=== PATIENT | female | born 1960 | race Caucasian/White ===

== ENCOUNTER 2016-07-12 07:21 | Day surgery (SDC) | payer BC ==
[2016-07-12] MEDS ORDERED: LIDOCAINE 2% MDV (20MG/ML) 20ML VIAL IV ONE ×2 (12:00)
[2016-07-12] MEDS ORDERED: PROPOFOL 10 MG/ML VIAL IV ONE (12:00)
--- NOTE | 2016-07-16 10:10 | Operative Note ---
DATE OF SURGERY: 07/12/2016 REFERRING PROVIDER: Deysi Rasheed MD PREOPERATIVE DIAGNOSIS: Colorectal cancer screening, last exam 5 years ago. POSTOPERATIVE DIAGNOSIS: Transverse colon polyps x 2, status post cold snare polypectomy x 2. OPERATION: COLONOSCOPY with cold snare polypectomy x 2. Preparation Quality: Fair to good. Estimated Blood Loss: Minimal. Samples Obtained: Transverse colon polyps x 2. PROCEDURE: After informed consent was obtained, the patient was placed in the left lateral decubitus position in the endoscopy suite, sedated and monitored by the Department of Anesthesia. Digital rectal exam was unremarkable. A well-lubricated PCF-180 colonoscope was inserted into the rectum and advanced to the cecum. The preparation quality was fair to good. The cecum, ileocecal valve, appendiceal orifice, and ascending colon were unremarkable. In the distal transverse colon there were 2 polyps, 1 somewhat pedunculated, 1 sessile, each removed with a cold snare. Minimal blood loss was noted. The polyps were retrieved without difficulty. The remainder of the transverse colon, descending colon, sigmoid colon, and rectum were otherwise unremarkable. J-turn views of the anorectum were unrevealing. The endoscope was straightened, the rectal ampulla deflated and the endoscope was removed. RECOMMENDATIONS: I would suggest the patient resume her medications and diet. She will require repeat exam in 3 years based on the preparation quality and the polyps that were seen. As always, thank you for allowing me to participate in the health care of your patients. Flavio Siegel DO CC: Deysi Rasheed MD [facility]
== END 2016-07-12 09:46 | disposition home or self-care (01) ==
LOC: HOP 07:21
PROVIDERS: ATTEND Internal Medicine Gastroenterology
DX: Z12.11 Encounter for screening for malignant neoplasm of colon (principal); D12.3 Benign neoplasm of transverse colon

== ENCOUNTER 2016-12-23 18:04 | Inpatient (IN) | payer MEDICARE ==
[2016-12-23] MEDS ORDERED: AZITHROMYCIN 500 MG in 0.9 % SODIUM CHLORIDE 250ML 250 ML IVPB ONE (18:33)
--- NOTE | 2016-12-23 18:40 | Emergency Department Record ---
History of Present Illness - General Chief Complaint: Shortness of breath Stated Complaint: YIN Time Seen by Provider: 12/23/16 18:07 Source: Patient Mode of Arrival: Ambulatory Limitations: No limitations - History of Present Illness Initial Comments: 56 yo female presents to ED with a CC of fever and worsening cough symptoms for the past 5-6 days. Patient reports worsening symptoms for the past several days after being seen in [facility] 4 days ago. 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 Patient reports fevers, chills, and decreased appetite as well. MD Complaint: Shortness of breath Onset/Timin -: Days(s) Severity: Moderate Consistency: Intermittent Improves With: Nothing Worsens With: Nothing Associated Symptoms: Cough, Fever Treatments Prior to Arrival: None - Related Data Home Oxygen Therapy: No Home Medications Medication Instructions Recorded Confirmed Last Taken Estrogens, Conjugated [Premarin] 1 unit TOP ASDIR 06/11/16 12/23/16 Unknown Levothyroxine Sodium 75 mcg PO DAILY 30 Days 12/20/16 12/23/16 Unknown Allergies Allergy/AdvReac Type Severity Reaction Status Date / Time No Known Drug Allergies Allergy Unverified 12/20/16 10:34 Travel Screening - Travel/Exposure Within Last 30 Days Have you traveled within the last 30 days?: No Review of Systems Constitutional: Reports: Chills, Fever, Malaise. Denies: Night sweats Eyes: Denies: Eye discharge, Eye pain ENT: Denies: Congestion, Ear pain, Epistaxis Respiratory: Reports: Cough, Dyspnea Cardiovascular: Reports: Dyspnea on exertion. Denies: Chest pain, Edema Endocrine: Denies: Fatigue, Heat or cold intolerance Gastrointestinal: Denies: Abdominal pain, Nausea, Vomiting Genitourinary: Denies: Incontinence, Retention Musculoskeletal: Denies: Arthralgia, Back pain, Gout Skin: Denies: Bruising, Change in color, Change in hair/nails Neurological: Denies: Abnormal gait, Confusion, Headache Psychiatric: Denies: Anxiety Hematological/Lymphatic: Denies: Anemia, Blood Clots Past Medical History - SOCIAL HISTORY Smoking Status: Never smoker Alcohol Use: None Drug Use: None - RESPIRATORY Hx Respiratory Disorders: No - CARDIOVASCULAR Hx Cardio Disorders: No - NEURO Hx Neuro Disorders: No - GI Hx GI Disorders: No - Hx Genitourinary Disorders: No - ENDOCRINE Hx Endocrine Disorders: No - MUSCULOSKELETAL Hx Musculoskeletal Disorders: No - PSYCH Hx Psych Problems: No - HEMATOLOGY/ONCOLOGY Hx Hematology/Oncology Disorders: Yes Hx Cancer: Yes (tongue and mouth) Hx Chemotherapy: Yes Hx Radiation Therapy: Yes Family Medical History Any Significant Family History?: No Physical Exam - General General Appearance: Alert, Oriented x3, Cooperative, Moderate distress, Other ( cachetic appearing on examination) Limitations: No limitations - Head Head exam: Atraumatic, Normocephalic, Normal inspection Head exam detail: negative: Abrasion, Contusion, Oakley's sign, General tenderness, Hematoma, Laceration - Eye Eye exam: Normal appearance. negative: Conjunctival injection, Periorbital swelling, Periorbital tenderness, Scleral icterus - ENT Ear exam: negative: Auricular hematoma, Auricular trauma Nasal Exam: negative: Active bleeding, Discharge, Dried blood Mouth exam: negative: Drooling, Laceration, Muffled voice, Tongue elevation - Neck Neck exam: Normal inspection. negative: Meningismus, Tenderness - Respiratory Respiratory exam: Decreased breath sounds, Other (crackles right base). negative: Rhonchi, Stridor, Wheezes - Cardiovascular Cardiovascular Exam: Normal rhythm, Normal heart sounds, Tachycardia - GI/Abdominal GI/Abdominal exam: Soft. negative: Distended, Rebound, Rigid, Tenderness - Rectal Rectal exam: Deferred - exam: Deferred - Extremities Extremities exam: negative: Calf tenderness, Pedal edema, Tenderness - Back Back exam: Denies: CVA tenderness (R), CVA tenderness (L) - Neurological Neurological exam: Alert, Normal gait, Oriented X3 - Psychiatric Psychiatric exam: Normal affect, Normal mood - Skin Skin exam: Normal color. negative: Abrasion Type of lesion: negative: abrasion Course Vital Signs 12/23/16 18:16 Temperature 100.5 F H Pulse Rate 111 H Respiratory 20 Rate Blood Pressure 120/75 Pulse Ox 91 L - Reevaluation(s) Reevaluation #1: 12/23/16 19:08 EKG: Sinus tachycardia [address] inversions III, AVF, ST depression V5/V6 Normal axis, normal intervals ST/T wave changes from 04/19/15 Reevaluation #2: 12/23/16 19:24 Labs reviewed, WBC 7.2 with 83% neutrophils. BUN 33/Creatinine 1.0. Lactic acid is 1.8. Troponin is pending. CXR: Bilateral infiltrates c/w pneumonia. Reevaluation #3: 12/23/16 19:36 Troponin has resulted as normal, will admit for further evaluation given the patient's vital signs and clinical appearance. Patient and SO agree with plan as discussed. Reevaluation #4: 12/23/16 19:43 Repeat Vitals: 109/69, pulse 112, RR 24, 94% 2 Liters, Temperature 100.2 Case was discussed with Dr. Gutiérrez, will accept admission at this time. Medical Decision Making - Lab Data Result diagrams: 12/23/16 18:40 12/23/16 18:40 Disposition Disposition: Admit Clinical Impression: CAP (community acquired pneumonia) Disposition: Still a Patient at [facility] Decision to Admit: Admit from ER Decision to Admit Date: 12/23/16 Decision to Admit Time: 19:37 Condition: (2) Stable Time of Disposition: 19:37 Quality - Quality Measures Quality Measures: N/A - Blood Pressure Screening Blood Pressure Classification: Pre-Hypertensive BP Reading Systolic Measurement: 120 Diastolic Measurement: 75 Screening for High Blood Pressure: < Pre-Hypertensive BP, F/U Documented > [ [id number]] (no further action required) Pre-Hypertensive Follow-up Interventions: Referral to alternative/primary care provider.
[2016-12-23] MEDS ORDERED: CEFTRIAXONE SODIUM 1 GM in 0.9 % SODIUM CHLORIDE 100ML 100 ML IVPB SCH ×2 (18:45→21:31)
[2016-12-23] MEDS ORDERED: 0.9 % SODIUM CHLORIDE 1000ML 1,000 ML IV SCH (18:45)
[2016-12-23 18:59] LABS: BASO % 0.3 % (0-6); HEMATOCRIT 41.4 % (35.0-47.0); HEMOGLOBIN 14.3 gm/dl (11.6-16.0); MEAN CELL VOLUME 88.7 fl (81-97); MEAN CORPUSCULAR HEMOGLOBIN 30.6 pg (27-33); MEAN CORPUSCULAR HGB CONC 34.5 g/dl (32-36); MONO % 8.9 % (0-9); PLATELET COUNT 140 K/uL (130-400); RED BLOOD COUNT 4.67 M/uL (3.80-5.40); RED CELL DISTRIBUTION WIDTH 14.1 % (11.5-14.5); WHITE BLOOD COUNT W/O DIFF 7.2 K/uL (4.2-12.2)
[2016-12-23 19:10] LABS: LACTIC ACID 1.8 mmol/L (0.7-2.1)
[2016-12-23 19:15] LABS: BLOOD UREA NITROGEN 33 mg/dL (7-17); EST GLOMERULAR FILTRATION RATE > 60 ml/min; GLUCOSE,RANDOM 147 mg/dL (70-110)
[2016-12-23 19:16] LABS: ALBUMIN 3.8 gm/dL (3.5-5.0); ALKALINE PHOSPHATASE 84 U/L (38-126); ALT/SGPT 42 U/L (9-52); AST/SGOT 44 U/L (14-36); TOTAL PROTEIN 7.6 gm/dL (6.3-8.2)
[2016-12-23] MEDS ORDERED: IBUPROFEN 100 MG/5 ML SUSP PO ONE (20:36)
[2016-12-23] MEDS ORDERED: PHENYLEPHRINE PO PRN (21:31)
[2016-12-23] MEDS ORDERED: ESTROGENS CONJ VG SCH (21:31)
[2016-12-23] MEDS ORDERED: ACETAMINOPHEN 500 MG TABLET PO PRN (21:31)
[2016-12-23] MEDS ORDERED: PROMETHAZINE PO PRN (21:31)
[2016-12-23] MEDS ORDERED: [UNRECOGNIZED DRUG - OTHER] PO PRN (21:31)
[2016-12-23] MEDS ORDERED: 0.9 % SODIUM CHLORIDE 1000ML 1,000 ML IV PRN (21:31)
[2016-12-23] MEDS ORDERED: CODEINE PO PRN (21:31)
[2016-12-23] MEDS: IPRATROPIUM/ALBUTEROL (0.5MG/3MG) NEB INH SCH (22:11)
[2016-12-23] MEDS: AZITHROMYCIN 500 MG in 0.9 % SODIUM CHLORIDE 250ML 250 ML IVPB SCH (22:43)
[2016-12-24] MEDS: IPRATROPIUM/ALBUTEROL (0.5MG/3MG) NEB INH SCH ×6 (02:20→21:50)
[2016-12-24] MEDS: CEFTRIAXONE SODIUM 1 GM in 0.9 % SODIUM CHLORIDE 100ML 100 ML IVPB SCH ×2 (06:36→18:05)
--- NOTE | 2016-12-24 07:37 | RADIOLOGY REPORT ---
EXAM: CHEST, TWO VIEWS HISTORY: COUGH AND FEVER. TECHNIQUE: PA and lateral upright views of the chest were obtained. Comparison: 12/20/16. FINDINGS: The heart, mediastinum, and pulmonary vasculature are normal. The lungs are hyperinflated. There are no infiltrates within the lower lobes bilaterally, right greater than left. The appearance is consistent with bilateral pneumonia. The upper lung gee are clear. There is no pneumothorax. There is minor blunting of the posterior costophrenic angles consistent with tiny effusions. The bones appear intact. Mild dextroconvex scoliosis is present within the thoracolumbar spine. IMPRESSION: 1. INTERVAL DEVELOPMENT OF BILATERAL LOWER LOBE INFILTRATES CONSISTENT WITH PNEUMONIA. 2. SMALL BILATERAL PLEURAL EFFUSIONS. 3. HYPERINFLATION. JOB NUMBER: [id number] [facility]
[2016-12-24] MEDS: LEVOTHYROXINE SODIUM 75 MCG TABLET PO SCH (09:31)
[2016-12-24] MEDS ORDERED: ACETAMINOPHEN 160 MG/5 ML UD 10.15ML CUP PO PRN (10:06)
[2016-12-24] MEDS ORDERED: 0.9 % SODIUM CHLORIDE 1000ML 1,000 ML IV ONE ×2 (10:47→10:48)
--- NOTE | 2016-12-24 16:14 | History and Physical Report ---
DATE OF ADMISSION: 12/23/2016 CHIEF COMPLAINT: Cough, congestion, dyspnea. HISTORY OF PRESENT ILLNESS: This is a 56-year-old female who presented to the ER with the chief complaint of fever, cough for the last four days, started on 12/18, which would be six days ago. She was seen at [facility], [place], diagnosed with a viral bronchitis, placed on Phenergan with codeine cough syrup, however, she is getting worse. She returned to the ER, seen by Dr. Chand and admitted to the hospital with bilateral pneumonia. She was given Rocephin and Azithromycin, IV fluids at 125 mL an hour, started on Azithromycin once a day and Rocephin 1 gram q.12hours and continue her home medications. Also started her on DuoNeb q.4hours p.r.n. 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 At [facility], they removed part of the jaw, made a reconstruction from a femur bone, and I think more of the tongue. She is having more difficulties with talking since that time and she is only able to eat liquids. This was in 2014. She did have a feeding tube in, however, that was DC'd between six and 12 months ago and since that has happened, she has lost about 10 pounds, according to the patient. She is thinking about trying to taking her oncologist to have her feeding tube placed back in. Her oncologist's name is Dr. Sanket Zimmerman at [phone]. Her last oncology appointment was 06/2016. Her next appointment is in 01/2017. She is currently not on chemo or radiation therapy. PAST SURGICAL HISTORY: Hysterectomy, tongue surgery, jaw surgery in 2014, J-tube placement and removal about six months ago to a year ago. Lymph node resection. SOCIAL HISTORY: She had never smoked cigarettes or never chewed tobacco. No alcohol use. 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 FAMILY PSYCHOSOCIAL HISTORY: Unremarkable. REVIEW OF SYSTEMS: HEENT: She does have congestion and cold, and fever and chills which started on 12/18 six days ago. CARDIOVASCULAR: No chest pain, palpitations, or arrhythmia. RESPIRATORY: Cough with congestion bilaterally. GASTROINTESTINAL: No nausea, vomiting, or diarrhea, black stools, or bloody stools. She is always on a liquid diet. GENITOURINARY: No dysuria or hematuria, frequency, or burning on urination. MUSCULOSKELETAL: No joint or bone abnormalities. NEUROLOGIC: No CVA, paralysis, or paresthesias. ENDOCRINE: No diabetes or thyroid disease. INTEGUMENT: No rash, ulcer, yellow skin, or moles. PHYSICAL EXAMINATION: GENERAL: Height is 5 feet 4 inches, weight is 91 pounds. VITAL SIGNS: Pulse is 69, respirations are 16, blood pressure is 90/60, pulse OX is 91% on room air. HEENT: She is only able to open her mouth about 3 cm because of her surgery on her throat and jaw area. Pupils are equal, round, and reactive to light and accomodation. Extraocular muscles intact. Throat has surgery on the tongue, which is basically almost gone. There is deformity of the left side of her face. NECK: Carotid pulses are equal bilaterally. No obvious signs of infection in her throat. Thyroid is smooth. CARDIOVASCULAR: Regular rate and rhythm without murmurs, clicks, rubs, or gallops. RESPIRATORY: Raucous-type lung sounds bilaterally and some with scant wheezing. ABDOMEN: Soft and nontender, no hepatosplenomegaly, no masses, no tenderness. Bowel sounds are active. No bruits. EXTREMITIES: No pitting edema, no cyanosis, no clubbing. Full range of motion, peripheral pulses are good. BREASTS: Deferred. GYNECOLOGIC: Deferred. RECTAL: Deferred. NEUROLOGIC: Cranial nerves 2 through 12 intact. No gross defects. Sensation normal, strength normal, deep tendon reflexes equal bilaterally. Babinski's is negative. MENTAL STATUS: Alert and oriented x 3. IMPRESSION: 1. Bilateral pneumonia. 2. Hyper inflation of the lungs. 3. History of tongue cancer in 1990. 4. History of jaw cancer in 2014. 5. Malnutrition, losing weight about 10 pounds over the last six months to a year. PLAN: 1. IV Rocephin 1 gram q.12h. 2. Azithromycin once a day, 500 mg. 3. DuoNeb treatments q.4h. p.r.n. 4. We will have a GI consult to discuss the possibilities of a feeding tube at this time. INPATIENT CERTIFICATION: Admit to Inpatient Care. Based on my medical assessment and after consideration of patient risk factors, age, comorbidities, and patient presenting symptoms and acuity, I expect this patient will remain in the hospital greater than or equal to 2 midnights, and the services needed warrant inpatient care because of bilateral pneumonia, oxygen requirements, and nutritional supplementation. ESTIMATED LENGTH OF STAY: 3 days. The patient may reasonably be expected to be discharged or transferred to a hospital within 96 hours after admission to [facility]. SERVICES NEEDED: IV antibiotics, oxygen therapy, oxygen monitoring, and DuoNeb treatment. I certify that my determination is in accordance with my understanding of Medicare requirements for reasonable and necessary inpatient services. [facility]
--- NOTE | 2016-12-24 16:20 | Medical Records Consult ---
DATE OF CONSULTATION: 12/24/2016 Dictated by: Daniela Silva, GI Fellow dictating for Dr. Ochoa REASON FOR CONSULTATION: Evaluation for feeding tube. HISTORY OF PRESENT ILLNESS: A 56-year-old female with past medical history significant for ENT malignancy, status post partial tongue resection and jaw reconstruction and history of hypothyroidism. Was admitted to [facility] for upper respiratory infection. GI was consulted for evaluation for PEG tube placement. HISTORY: Patient reports that in 1990, she had her first initial ENT surgery in which she had multiple lymph nodes removed. Her second surgery was in 2014 in which she had an extensive jaw reconstruction including bone grafting as well as partial tongue resection. At that time, she was evaluated by Speech Therapy and recommended to have a feeding tube placed. She likely had endoscopic PEG tube placement, but she is not 100% sure. All of her care was done through the [facility]. About a year ago, patient reports that she had a lot of issues with the PEG tube falling out, and after the third time, it was decided to leave the PEG tube out and see how patient was able to maintain her own nutrition. Patient was able to maintain her nutrition on a pureed diet and weight was stable at 105 pounds; however, patient reports that she has had a number of recurrent upper respiratory infections, and with each subsequent infection, patient lost a small amount of weight. She is currently down to 95 pounds and unable to gain her weight back. She last had dysphagia evaluation at her ENT's office through the [facility], and she reports that her dysphagia evaluation was unchanged from the previous. It was discussed and left up to her on whether or not she wanted to have a feeding tube placed again, and patient opted not to have one at that time. However, now that patient has not been able to gain her weight back, she is interested in having a PEG tube placed, for which GI has been consulted. PAST MEDICAL HISTORY: Hypothyroidism. Tongue cancer. SURGICAL HISTORY: Patient has had appendectomy, hysterectomy, jaw reconstruction, tongue resection, lymph node resection, tubal ligation. FAMILY HISTORY: Patient reports father from coronary artery disease. He also had a CABG. Mother is alive and healthy. She denies any family history of any malignancy. SOCIAL HISTORY: She is a nonsmoker. Does not drink alcohol. Does not use any illicit or IV drugs. MEDICATIONS: Refer to patient's admitting H&P for medications. Patient reports that only medication she does take, however, is levothyroxine. ALLERGIES: No known drug allergies. REVIEW OF SYSTEMS: Ten-point review of systems was performed and pertinent positives and negatives as listed above in the HPI. In addition, patient reports that she has trouble initiating her swallowing, but when she is able to get things down, she does not have any issues with food sticking in her throat. She denies any abdominal pain, nausea or vomiting. She does get recurrent infections, namely upper respiratory infections, and she has a lot of cough. She does report that she coughs and chokes sometimes when she eats. PHYSICAL EXAMINATION GENERAL: Not in acute distress. Alert and oriented x 3. HEENT: No scleral icterus. She does have surgical scars consistent with her jaw reconstruction. HEART: Regular rate and rhythm. No murmurs auscultated. LUNGS: Clear to auscultation bilaterally. No wheeze, rales or rhonchi noted. ABDOMEN: Abdomen is soft. Not distended. There are bowel sounds present. There is a PEG tube scar in the left upper quadrant. She is nontender to palpation. EXTREMITIES: No pedal edema present. She does have a scar on the left lateral side of her lower extremity from which she reports that her bone was grafted. SKIN: No jaundice. No pallor. LABS AND RADIOLOGY: Please refer to patient's hospital chart for these values and results. ASSESSMENT: 1. Dysphagia secondary to ENT malignancy, status post jaw reconstruction. 2. Hypothyroidism. RECOMMENDATIONS: Patient reports that she did have breakfast this morning, and so we are unable to perform any procedures today. Patient also indicates that she will be discharged tomorrow so outpatient PEG tube placement will be arranged through our office. This was discussed with the patient, and she is agreeable to that plan. Above was discussed with Dr. Ochoa. Thank you for the consultation. CC: Tito Gutiérrez DO GI Office [facility]
[2016-12-24] MEDS: AZITHROMYCIN 500 MG in 0.9 % SODIUM CHLORIDE 250ML 250 ML IVPB SCH (20:45)
[2016-12-25] MEDS: IPRATROPIUM/ALBUTEROL (0.5MG/3MG) NEB INH SCH ×7 (02:30→21:19)
[2016-12-25] MEDS: CEFTRIAXONE SODIUM 1 GM in 0.9 % SODIUM CHLORIDE 100ML 100 ML IVPB SCH ×2 (06:07→17:31)
[2016-12-25] MEDS: LEVOTHYROXINE SODIUM 75 MCG TABLET PO SCH (06:07)
[2016-12-25] MEDS ORDERED: ENOXAPARIN 30 MG/0.3 ML SYR SQ SCH (13:00)
[2016-12-25] MEDS ORDERED: METHYLPREDNISOLONE PF 125MG/VIAL IVP ONE (13:30)
[2016-12-26] MEDS: IPRATROPIUM/ALBUTEROL (0.5MG/3MG) NEB INH SCH ×4 (00:52→09:28)
[2016-12-26] MEDS: LEVOTHYROXINE SODIUM 75 MCG TABLET PO SCH (06:17)
[2016-12-26] MEDS: CEFTRIAXONE SODIUM 1 GM in 0.9 % SODIUM CHLORIDE 100ML 100 ML IVPB SCH (06:17)
[2016-12-26] MEDS ORDERED: PNEUM 23-VAL ADULT IM ONE (07:52)
--- NOTE | 2016-12-26 08:01 | Discharge Note ---
VTE H&P Assessment - Risk for VTE Risk for VTE: Yes Risk Level: Moderate Risk Assessment Date: 12/25/16 Risk Assessment Time: 13:00 VTE Orders Placed or Will Be Placed: Yes Discharge Medications - Discharge Medications Prescriptions: Albuterol Sulfate [Ventolin Hfa] 1 - 2 puff IH .EVERY 4-6 HRS PRN #1 inhaler PRN Reason: Wheezing Azithromycin [Zithromax] 500 mg PO DAILY #7 tab Cephalexin [Keflex] 500 mg PO QID #30 cap Home Medications: Ambulatory Orders Estrogens, Conjugated [Premarin] 1 unit TOP ASDIR 06/11/16 [Last Taken Unknown] Levothyroxine Sodium 75 mcg PO DAILY 30 Days 12/20/16 [Last Taken Unknown] Acetaminophen [Tylenol Liq] 975 mg PO Q6H PRN 12/26/16 [Last Taken Unknown] Albuterol Sulfate [Ventolin Hfa] 1 - 2 puff IH .EVERY 4-6 HRS PRN #1 inhaler 06/02 [Last Taken Unknown] Azithromycin [Zithromax] 500 mg PO DAILY #7 tab 12/26/16 [Last Taken Unknown] Cephalexin [Keflex] 500 mg PO QID #30 cap 12/26/16 [Last Taken Unknown] Discharge Note - Date Date of Discharge Note: 12/26/16 Disposition: Home, Self-Care Condition: (2) Stable Additional Instructions: follow up with Dr. Rasheed in the next week and after the pneumonia is cleared up follow up with Dr. Ochoa for a feeding tube. See GI consult. Forms: Patient Portal Access
[2016-12-26] MEDS ORDERED: PNEUM 13-VAL/PF 0.5 ML IM ONE (09:20)
[2016-12-26] MEDS ORDERED: AZITHROMYCIN 500 MG TABLET PO SCH (10:00)
--- NOTE | 2016-12-26 14:25 | Discharge Summary ---
DATE OF ADMISSION: 12/23/2016 DATE OF DISCHARGE: 12/26/2016 DISCHARGE DIAGNOSES: 1. Bilateral pneumonia. 2. History of jaw cancer and tongue cancer with a reconstruction. The tongue cancer was in 1990. The jaw cancer was in 2014. 3. Losing weight because of surgeries and not able to swallow and eat well. She did have a PEG tube in, but that came out, and it was left out for the last 6 months to a year. She would like to have that put back in again. GI consult was obtained and they will do that as an outpatient after the pneumonia has cleared up. 4. Status post hypothyroidism. ATTENDING PHYSICIAN: Tito Gutiérrez DO. REASON FOR HOSPITALIZATION: Cough, congestion, and dyspnea. This 56-year-old female presented to the Emergency Department with chief complaint of fever and cough for the last 4 days, which started on 12/18/2016. She was see at the [facility] and diagnosed with viral bronchitis and given Phenergan with codeine cough syrup. She got worse. She came into the ER and saw Dr. Neely and admitted to the hospital for bilateral pneumonia. She was given Rocephin and azithromycin and IV fluids. Also started on DuoNeb treatments every 4 hours. SIGNIFICANT FINDINGS: Chest x-ray revealed interval bilateral lower lobe pneumonia, bilateral infiltrates, small bilateral pleural effusions. Hyperinflation of the lungs. This was compared to an x-ray of 12/20/2016. This x-ray was done on 12/23/2016. LABORATORY: WBC 7200. Hemoglobin 14.3. Blood culture showing no growth up to this point. Potassium 4.6. BUN 33. Creatinine 1. Lactic acid 1.8. Troponin I was negative. THERAPY PROVIDED AND RESPONSE TO THERAPY: Patient was given DuoNeb treatments, oxygen therapy, and IV Rocephin and azithromycin IV. Gradually improved. She was given 1 dose of Solu-Medrol, which seemed to help her lung sounds yesterday, the day before discharge. Consultation with Dr. Ochoa for a PEG tube insertion. He would like to wait until the patient is clear of the pneumonia before putting the PEG tube in. On his consultation, she has dysphagia secondary to ENT malignancy, status post jaw reconstruction, 2) hypothyroidism, and Dr. Ochoa's office will contact the patient after she clear from pneumonia. PEG tube will be set up as an outpatient. Dr. Rasheed can facilitate that. Patient was improving and walking the hallway on the date before discharge and not short of breath. CONDITION ON DISCHARGE: Much improved. DISCHARGE INSTRUCTIONS: Follow up with Dr. Rasheed in 7 days. Ventolin inhaler 2 puffs every 4 hours. Azithromycin 500 mg daily. Keflex 500 mg q.i.d. for 7 days. Will continue with her home medications of levothyroxine and Premarin topically 3 times a week and p.r.n. CC: Deysi Rasheed MD [facility] SYSTEM[facility]berly
== END 2016-12-26 11:30 | disposition home or self-care (01) | DRG 178 ==
LOC: ER 18:04 → MEDSURG 20:28
PROVIDERS: ADMIT Emergency Medicine; ATTEND Emergency Medicine
DX: J69.0 Pneumonitis due to inhalation of food and vomit (principal); E46 Unspecified protein-calorie malnutrition; Z85.810 Personal history of malignant neoplasm of tongue; Z85.830 Personal history of malignant neoplasm of bone; R13.12 Dysphagia, oropharyngeal phase; E03.9 Hypothyroidism, unspecified
CPT/HCPCS: 71020; 80053; 83605; 84484; 85027; 90670; 93005; 93010; 93041; 94640; 94760; 94761; 96365; 99223; 99285; J0456; J1650; J2930; J7030; J7050

== ENCOUNTER 2017-01-24 21:08 | Emergency (ER) | payer MEDICARE ==
--- NOTE | 2017-01-24 21:28 | Emergency Department Record ---
History of Present Illness - General Chief complaint: Pain Stated complaint: PAIN WHERE FEEDING TUBE LOCATED Time Seen by Provider: 01/24/17 21:27 Source: Patient, Family - History of Present Illness Initial comments: The patient has a feeding tube which was placed 2 weeks ago at [facility]. 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 She has been underweight and had feeding tubes placed in the past. This tube is working and handles her feeding well without any concern for the tube being blocked. Her concern is that it is painful at the site of the tube entering her abdomen. She denies abdominal pain otherwise, no fevers, chills, cough, cp, madhavi, urinary symptoms, leg pain or calf tenderness. She was treated for pneumonia last month but this has resolved. - Related Data Home Medications Medication Instructions Recorded Confirmed Last Taken Estrogens, Conjugated [Premarin] 1 unit TOP ASDIR 06/11/16 12/23/16 Unknown Levothyroxine Sodium 75 mcg PO DAILY 30 Days 12/20/16 12/23/16 Unknown Previous Rx's Medication Instructions Recorded Acetaminophen [Tylenol Liq] 975 mg PO Q6H PRN 12/26/16 Albuterol Sulfate [Ventolin Hfa] 1 - 2 puff IH .EVERY 4-6 HRS PRN 12/26/16 #1 inhaler Azithromycin [Zithromax] 500 mg PO DAILY #7 tab 12/26/16 Cephalexin [Keflex] 500 mg PO QID #30 cap 12/26/16 Acetaminophen with Codeine 5 ml PO Q4H PRN #60 ml 01/24/17 [Tylenol #3] Allergies Allergy/AdvReac Type Severity Reaction Status Date / Time No Known Drug Allergies Allergy Unverified 12/20/16 10:34 Review of Systems Reviewed: No additional complaints except as noted below Constitutional: Reports: As per HPI. Denies: Chills, Fever, Malaise, Night sweats, Weakness, Weight change Eyes: Reports: As per HPI. Denies: Eye discharge, Eye pain, Photophobia, Vision change ENT: Reports: As per HPI. Denies: Congestion, Dental pain, Ear pain, Epistaxis , Hearing loss, Throat pain Respiratory: Reports: As per HPI. Denies: Cough, Dyspnea, Hemoptysis, Stridor, Wheezes Cardiovascular: Reports: As per HPI. Denies: Arrhythmia, Chest pain, Dyspnea on exertion, Edema, Murmurs, Orthopnea, Palpitations, Paroxysmal nocturnal dyspnea, Rheumatic Fever, Syncope Endocrine: Reports: As per HPI. Denies: Fatigue, Heat or cold intolerance, Polydipsia, Polyuria Gastrointestinal: Reports: As per HPI. Denies: Abdominal pain, Constipation, Diarrhea, Hematemesis, Hematochezia, Melena, Nausea, Vomiting Genitourinary: Reports: As per HPI. Denies: Abnormal menses, Discharge, Dyspareunia, Dysuria, Frequency, Hematuria, Incontinence, Retention, Urgency Musculoskeletal: Reports: As per HPI. Denies: Arthralgia, Back pain, Gout, Joint swelling, Myalgia, Neck pain Skin: Reports: As per HPI. Denies: Bruising, Change in color, Change in hair/ nails, Lesions, Pruritus, Rash Neurological: Reports: As per HPI. Denies: Abnormal gait, Confusion, Headache, Numbness, Paresthesias, Seizure, Tingling, Tremors, Vertigo, Weakness Psychiatric: Reports: As per HPI. Denies: Anxiety, Auditory hallucinations, Depression, Homicidal thoughts, Suicidal thoughts, Visual hallucinations Hematological/Lymphatic: Reports: As per HPI. Denies: Anemia, Blood Clots, Easy bleeding, Easy bruising, Swollen glands Past Medical History - SOCIAL HISTORY Smoking Status: Never smoker - RESPIRATORY Hx Respiratory Disorders: No - CARDIOVASCULAR Hx Cardio Disorders: No - NEURO Hx Neuro Disorders: No - GI Hx GI Disorders: No - Hx Genitourinary Disorders: No - ENDOCRINE Hx Endocrine Disorders: No - MUSCULOSKELETAL Hx Musculoskeletal Disorders: No - PSYCH Hx Psych Problems: No - HEMATOLOGY/ONCOLOGY Hx Hematology/Oncology Disorders: Yes Hx Cancer: Yes (tongue and mouth) Hx Chemotherapy: Yes Hx Radiation Therapy: Yes Physical Exam - General General Appearance: Alert, Oriented x3, Cooperative, No acute distress - Head Head exam: Normal inspection - Eye Eye exam: Normal appearance, PERRL Pupils: Normal accommodation - ENT ENT exam: Normal exam, Mucous membranes moist, Normal external ear exam, TM's normal bilaterally, Other (post surgical/chemo/radiation/reconstruction of left side of mouth/jaw) Ear exam: Normal external inspection. negative: External canal tenderness Nasal Exam: Normal inspection. negative: Discharge, Sinus tenderness Mouth exam: Normal external inspection, Tongue normal Teeth exam: Normal inspection. negative: Dental caries Throat exam: Normal inspection. negative: Tonsillar erythema, Tonsillar exudate - Neck Neck exam: Normal inspection, Full ROM. negative: Lymphadenopathy, Tenderness - Respiratory Respiratory exam: Normal lung sounds bilaterally. negative: Respiratory distress - Cardiovascular Cardiovascular Exam: Regular rate, Normal rhythm, Normal heart sounds - GI/Abdominal GI/Abdominal exam: Soft, Normal bowel sounds, Other (feeding tube place left upper abdomen, no erythema, drainage, or evidence of misplacement, loosening. No cellulitis evident.). negative: Tenderness - Rectal Rectal exam: Deferred - exam: Deferred - Extremities Extremities exam: Normal inspection, Full ROM, Normal capillary refill. negative: Calf tenderness, Pedal edema, Tenderness - Back Back exam: Reports: Normal inspection, Full ROM. Denies: Muscle spasm, Rash noted, Tenderness - Neurological Neurological exam: Alert, Normal gait, Oriented X3, Reflexes normal - Psychiatric Psychiatric exam: Normal affect, Normal mood - Skin Skin exam: Dry, Intact, Normal color, Warm Course Vital Signs 01/24/17 21:16 Temperature 96.6 F L Pulse Rate [ 61 Pulse Ox Probe] Respiratory 18 Rate Blood Pressure 119/80 [Left Arm] Pulse Ox 98 - Reevaluation(s) Reevaluation #1: Patient had a "spasm" of pain lasting seconds while I was at the bedside, then it resolved. Will try bentyl shot and send home with tylenol with codeine elixir. She was instructed to recheck with her PCP or [facility] Walls for this intermittent pain. 01/24/17 23:22 Medical Decision Making - Management Options MDM Management: No Additional Work-up Planned - Data Complexity MDM Data: X-Ray Ordered and/or Reviewed (CT shows normal function of feeding tube with no leakage, no displacement of tube, and no acute abnormality. Per rad.) Disposition Disposition: Discharge Clinical Impression: Encounter for care related to feeding tube Disposition: Home, Self-Care Condition: (1) Good Additional Instructions: Take tylenol with codeine elixir as directed if needed for pain. Follow up with PCP or with [facility] Walls as needed. Prescriptions: Acetaminophen with Codeine [Tylenol #3] 5 ml PO Q4H PRN #60 ml PRN Reason: Pain - General Quality - Quality Measures Quality Measures: N/A - Blood Pressure Screening Does Patient Have Any of the Following: No Blood Pressure Classification: Normal BP Reading Systolic Measurement: 117 Diastolic Measurement: 76 Screening for High Blood Pressure: < Normal BP, F/U Not Required > [G2101]
[2017-01-24] MEDS ORDERED: DICYCLOMINE HCL 10 MG/ML AMPUL IM ONE (23:25)
[2017-01-24] MEDS ORDERED: ACETAMINOPHEN WITH CODEINE 5 ML SOLUTION PO ONE (23:25)
--- NOTE | 2017-01-25 13:38 | CT SCAN REPORT ---
EXAM: CT OF THE ABDOMEN HISTORY: GASTROSTOMY TUBE PLACED TWO WEEKS AGO. PATIENT HAVING PAIN. TECHNIQUE: CT of the abdomen was performed without intravenous contrast. Diluted Gastrografin contrast was given through the patient's gastrostomy tube. FINDINGS: There are bibasilar areas of atelectasis or infiltrate slightly improved from the previous study. The lung bases otherwise are unremarkable. There is a gastrostomy tube present. The tube lies within the stomach in apparent good position. The balloon is inflated within the stomach. The contrast is present within the stomach and proximal duodenum. No contrast extravasation identified. The liver is unremarkable. There is a 2.2 cm low density lesion in the posterior spleen unchanged from the patient's recent chest CT which also included this region. The spleen is otherwise unremarkable. No pancreatic mass or inflammatory change. The bile ducts are not dilated and there are no calcified gallstones. No aortic aneurysm. No periaortic mass or adenopathy. No adrenal lesion seen. There are scattered small areas of increased density in the kidneys bilaterally most likely incidental proteinaceous cysts. There are no dilated bowel loops. No free air or free fluid identified. IMPRESSION: 1. THERE IS A GASTROSTOMY TUBE PRESENT IN APPARENT GOOD POSITION. NO EVIDENCE OF CONTRAST EXTRAVASATION IDENTIFIED. 2. BIBASILAR ATELECTASIS OR INFILTRATE SLIGHTLY IMPROVED FROM THE RECENT CHEST CT. 3. 2.2 CM LOW DENSITY LESION IN THE POSTERIOR SPLEEN UNCHANGED. 4. SCATTERED SMALL FOCI OF INCREASED DENSITY IN THE KIDNEYS BILATERALLY MAY REPRESENT HYPERDENSE/PROTEINACEOUS CYSTS. 5. NO ACUTE PROCESS SEEN. JOB NUMBER: [id number] MTDD
== END 2017-01-24 23:58 | disposition home or self-care (01) ==
LOC: ER 21:08
DX: T85.848A Pain due to other internal prosthetic devices, implants and grafts, initial encounter (principal); Z85.810 Personal history of malignant neoplasm of tongue
CPT/HCPCS: 74150; 96372; 99283